=== PATIENT | female | born 1935 | race Caucasian/White ===

== ENCOUNTER → 2018-07-03 | Outpatient (CLI) | payer MEDICARE | END | disposition home or self-care (01) | LOC: CFH 14:35 | PROVIDERS: ATTEND Specialist | DX: M81.0 Age-related osteoporosis without current pathological fracture (principal); E55.9 Vitamin D deficiency, unspecified; Z78.0 Asymptomatic menopausal state | CPT/HCPCS: 77080 ==

== ENCOUNTER → 2018-10-30 | Outpatient (CLI) | payer MEDICARE | END | disposition home or self-care (01) | LOC: RAD 19:30 | PROVIDERS: ATTEND Family Medicine | DX: S09.93XA Unspecified injury of face, initial encounter (principal); X58.XXXA Exposure to other specified factors, initial encounter; Y93.89 Activity, other specified; Y92.89 Other specified places as the place of occurrence of the external cause; Y99.8 Other external cause status | CPT/HCPCS: 70150 ==

== ENCOUNTER → 2019-01-15 | Outpatient (CLI) | payer MEDICARE | END | disposition home or self-care (01) | LOC: CFH 16:02 | PROVIDERS: ATTEND Family Medicine | DX: M47.817 Spondylosis without myelopathy or radiculopathy, lumbosacral region (principal); M41.86 Other forms of scoliosis, lumbar region; M16.12 Unilateral primary osteoarthritis, left hip | CPT/HCPCS: 72100 ==

== ENCOUNTER → 2019-11-09 | Outpatient (CLI) | payer MEDICARE | END | disposition home or self-care (01) | LOC: CFH 09:55 | PROVIDERS: ATTEND Family Medicine | DX: R94.5 Abnormal results of liver function studies (principal) | CPT/HCPCS: 76705 ==

== ENCOUNTER 2021-01-13 11:25 | Emergency (ER) | payer MEDICARE ==
[~2021-01-13] VITALS: Ht 162.6 cm; Wt 52.9 kg
[2021-01-13] MEDS ORDERED: SODIUM CHLORIDE FLUSH 10ML SYR IVF ONE (12:30)
[2021-01-13] MEDS ORDERED: SODIUM CHLORIDE 0.9% 1,000ML IVBOLUS ONE (12:30)
--- NOTE | 2021-01-13 12:35 | NUR ---
PT BIB SON VIA POV. PER PT SHE WOKE UP AROUND 0900, FELT LIGHTHEADED, AND HAD A GLF. PER PT NO LOC, NO BLOOD THINNERS, AND NO NECK PAIN. PT DOES HAVE A BRUISED NOSE, BUT STATES SHE NO LONGER FEELS LIGHT HEADED. PT A&OX4. PT RESTING IN [facility] AT THIS TIME, MONITORING IN PLACE, EKG DONE, PIV INSERTED, PT MEDICATED PER EMAR, WCSHAYY.
--- NOTE | 2021-01-13 12:37 | NUR ---
PT TO CT VIA [facility] AT THIS TIME.
[2021-01-13 13:11] LABS: BASOPHILS % (AUTO) 1 % (0-1); EOSINOPHILS % (AUTO) 7 % (1-7); LYMPHOCYTES % (AUTO) 16 % (22-44); MEAN CORPUSCULAR HEMOGLOBIN 32.8 pg (27.0-34.8); MEAN CORPUSCULAR HGB CONC 33.2 g/dL (32.4-35.8); MEAN PLATELET VOLUME 7.3 fL (7.4-10.4); MONOCYTES % (AUTO) 8 % (2-9); NEUTROPHILS % (AUTO) 68 % (42-75); PLATELET COUNT 293 x10^3/uL (130-400); RED BLOOD COUNT 3.75 x10^6/uL (3.82-5.3)
[2021-01-13 13:14] LABS: MD NO
[2021-01-13 13:22] LABS: ALBUMIN 3.4 g/dL (3.4-5.0); ANION GAP 5 mmol/L (5-15); CALCIUM 9.9 mg/dL (8.5-10.1); CHLORIDE 105 mmol/L (98-107); CREATININE 0.83 mg/dL (0.55-1.02)
[2021-01-13 13:26] LABS: TROPONIN I < 0.015 ng/mL (0.000-0.045)
[2021-01-13 13:47] LABS: MICROSCOPIC NOT IND
[2021-01-13 14:33] VITALS: BP 125/78
== END 2021-01-13 14:59 | disposition home or self-care (01) ==
LOC: ED 12:17
DX: E86.0 Dehydration (principal); R55 Syncope and collapse; R42 Dizziness and giddiness; R51.9 Headache, unspecified; R53.1 Weakness; R94.31 Abnormal electrocardiogram [ECG] [EKG]
CPT/HCPCS: 36415; 70450; 80048; 81003; 82040; 84484; 85025; 93005; 96360; 99285; J7030